=== PATIENT | female | born 1995 | race African-American/Black ===

== ENCOUNTER → 2024-06-28 | Outpatient (CLI) | payer OTHER | LOC: M RAD 07:50 | PROVIDERS: ATTEND Physician Assistant | DX: J98.6 Disorders of diaphragm (principal) ==

== ENCOUNTER 2024-12-16 10:14 | Emergency (ER) | payer OTHER ==
[~2024-12-16] VITALS: Ht 167.6 cm; Wt 97.7 kg
[2024-12-16] MEDS ORDERED: VITA100093 PO (10:25)
[2024-12-16] MEDS ORDERED: ALBU8.5H INH (10:25)
[2024-12-16] MEDS ORDERED: SUMA25TA3 PO (10:25)
[2024-12-16] MEDS ORDERED: HOME MED LIST COMPLETE! XX SCH (11:30)
[2024-12-16] MEDS: NS (Normal Saline) 0.9% 1,000 ML IV ONE (12:16)
[2024-12-16] MEDS: ACETAMINOPHEN 500 MG TAB PO ONE (12:17)
[2024-12-16] MEDS: KETOROLAC 30 MG/ML 1 ML VIAL IV ONE (12:19)
[2024-12-16] MEDS: diphenhydrAMINE 50 MG/ML VIAL IV ONE (12:19)
[2024-12-16 12:21] LABS: BASO # 0.0 10^3/uL (0.0-0.2); BASO % 0.5 % (0.0-1.0); EOS # 0.0 10^3/uL (0.0-0.5); EOS % 0.3 % (0.0-3.0); LYMPH # 2.2 10^3/uL (1.5-5.0); LYMPH % 34.7 % (24.0-44.0); MONO # 0.5 10^3/uL (0.0-0.8); MONO % 7.7 % (2.0-8.0); NEUTROPHILS # 3.5 10^3/uL (1.5-8.5); NEUTROPHILS % 56.6 % (36.0-66.0); PLATELET COUNT, AUTOMATED 271 10^3/uL (150-450)
[2024-12-16 12:26] LABS: ERYTHROCYTE SEDIMENTATION RATE 24 mm/hr (0-20)
[2024-12-16] MEDS: MECLIZINE 25 MG TABLET PO ONE (12:35)
[2024-12-16 13:50] LABS: CK-MB VALUE MASS 1.8 NG/ML (<3.6)
[2024-12-16 13:54] LABS: FREE T4 1.25 NG/DL (0.89-1.76)
[2024-12-16 13:55] LABS: ALT/SGPT 20 U/L (7.0-40); AST/SGOT 24 U/L (<34); C REACTIVE PROTEIN QUANTITATIV < 0.50 MG/DL (<1.0); CALCIUM LEVEL 9.3 MG/DL (8.5-10.1); CARBON DIOXIDE LEVEL 25 MMOL/L (20-31); CHLORIDE LEVEL 103 MMOL/L (98-107); CPK CREATINE PHOSPHOKINASE 214 U/L (34-145); CREATININE FOR GFR 0.87 MG/DL (0.55-1.30); GLOMERULAR FILTRATION RATE > 90.0 (>60); MB/CK RELATIVE INDEX 0.84 (< OR =4); POTASSIUM SERUM 4.1 MMOL/L (3.5-5.1); SODIUM LEVEL 139 MMOL/L (136-145)
[2024-12-16] MEDS ORDERED: MECL-86 PO (14:59)
[2024-12-16] MEDS ORDERED: UBRO50TA PO (14:59)
[2024-12-16 15:00] VITALS: BP 111/68; O2SAT 99
[2024-12-16 15:13] VITALS: TEMP 97.8
== END 2024-12-16 15:19 | disposition home or self-care (01) ==
LOC: M ED 10:14
DX: G43.909 Migraine, unspecified, not intractable, without status migrainosus (principal); R07.9 Chest pain, unspecified; I45.10 Unspecified right bundle-branch block; Z79.51 Long term (current) use of inhaled steroids; Z79.899 Other long term (current) drug therapy
CPT/HCPCS: 70450; 71045; 80048; 80076; 82550; 82553; 83690; 84439; 84443; 84484; 85025; 85652; 86140; 93005; 93041; 96361; 96374; 96375; 99285; J1200; J1885; J2765

== ENCOUNTER → 2025-01-06 | Outpatient (CLI) | payer OTHER ==
[~2025-01-06] MED LIST: ALBU8.5H INH; MECL-86 PO; METHACHOLINE KIT (6 VIAL.NEB PREMIX) INH ONE; SUMA25TA3 PO; UBRO50TA PO; VITA100093 PO
== END ==
LOC: M CARPUL 08:45
PROVIDERS: ATTEND Physician Assistant
DX: R06.02 Shortness of breath (principal)